=== PATIENT | female | born 1955 | race Caucasian/White ===

== ENCOUNTER 2017-06-03 20:30 | Inpatient (IN) | payer SELFPAY ==
[2017-06-03 21:06] LABS: Absolute Lymphocytes (CBC) 2.5 K/uL (0.7-4.9); Absolute Monocytes 0.8 K/uL (0.1-1.3); Absolute Neutrophil 4.4 K/uL (1.8-8.0); Basophils % 1.1 % (0-1.3); Eosinophils % 3.2 % (0-4.4); Hematocrit 44.2 % (36.0-45.0); Lymphocytes % 30.8 % (15.3-44.8); MCH 29.1 pg (27.0-35.0); MCV 87.2 fL (80-100); MPV 9.1 fL (7.6-11.3); Monocytes % 10.3 % (3.3-12.3); RBC Red Blood Cell Count 5.07 M/uL (3.86-4.86)
[2017-06-03 21:29] LABS: Bicarbonate 32 mEq/L (21-31); Glucose Level 103 mg/dL (65-120); Potassium 3.7 mEq/L (3.6-5.0); Sodium Level 138 mEq/L (135-145)
[2017-06-03 21:30] LABS: BUN Blood Urea Nitrogen 11 mg/dL (6-20); Glomerular Filtration Rate > 90 mL/min (=/>90)
--- NOTE | 2017-06-03 21:51 | RAD REPORT ---
EXAM DESCRIPTION: CT - Head Brain Wo Cont - 06/03/2017 9:32 pm CLINICAL HISTORY: Dizziness and blurred vision since this morning COMPARISON: None. TECHNIQUE: Computed axial tomography of the head was obtained. IV contrast was not requested. All CT scans are performed using dose optimization technique as appropriate and may include automated exposure control or mA/KV adjustment according to patient size. FINDINGS: An intracranial bleed is not seen . The ventricles are normal in caliber. No extra-axial fluid collection is noted. Fluid within the sinuses/ mastoids is not seen. IMPRESSION: No acute intracranial abnormality is seen. If patient's symptoms persist MRI of the bra in would be recommended.
--- NOTE | 2017-06-03 22:05 | EDPHYS ---
Physician Documentation [facility] Name: Lida Long Age: 62 yrs Sex: Female : 1955 Arrival Date: 06/03/2017 Time: 20:31 Bed 6 Private MD: ED Physician Rohith Chowdary HPI: 06/03 22:04 This 62 yrs old Female presents to ER via Ambulatory with complaints of snw Blurred Vision, Dizziness. 22:04 The patient's problem is reported as headache. Onset: The symptoms/episode snw began/occurred acutely, this morning. Duration: The episodes are intermittent. Context: the episode(s) was witnessed, by no one, occurred at home. The symptoms are alleviated by nothing. Associated signs and symptoms: Pertinent positives: dizziness, headache, headache. Severity of symptoms: At their worst the symptoms were moderate in the emergency department the symptoms are unchanged. Patient's baseline: Neuro: alert and fully oriented, Motor: no deficits, Ambulation: walks without assistance. The patient has not experienced similar symptoms in the past. Historical: - Allergies: 20:42 No Known Allergies; la1 - Home Meds: 21:51 gabapentin 300 mg oral cap 1 cap 3 times per day [Active]; nabumetone 750 mg oral tab 1 la1 tab 2 times per day [Active]; amitriptyline 10 mg Oral tab 1 tab nightly [Active]; atorvastatin 20 mg oral tab 1 tab once daily [Active]; levothyroxine 125 mcg tab 1 tab once daily [Active]; hydrochlorothiazide 12.5 mg Oral tab 1 tab once daily [Active]; citalopram 20 mg tab 1 tab once daily [Active]; amlodipine 2.5 mg tab 1 tab once daily [Active]; omeprazole 20 mg Oral cpDR 1 cap once daily [Active]; - PMHx: 20:42 Hypertension; Hypothyroidism; back pain; la1 - Immunization history:: Adult Immunizations up to date. - Social history:: Smoking status: Patient uses tobacco products, smokes one pack cigarettes per day. ROS: 22:00 Eyes: Negative for injury, pain, redness, and discharge, ENT: Negative for injury, snw pain, and discharge, Neck: Negative for injury, pain, and swelling, Cardiovascular: Negative for chest pain, palpitations, and edema, Respiratory: Negative for shortness of breath, cough, wheezing, and pleuritic chest pain, Abdomen/GI: Negative for abdominal pain, nausea, vomiting, diarrhea, and constipation. 22:00 : Negative for injury, bleeding, discharge, and swelling, MS/Extremity: Negative for injury and deformity, Skin: Negative for injury, rash, and discoloration. 22:00 Constitutional: Positive for body aches, fatigue, malaise. 22:00 Back: Positive for pain at rest, hx of herniated disc. 22:00 Neuro: Positive for dizziness, headache. Exam: 21:55 Constitutional: This is a well developed, well nourished patient who is awake, alert, snw and in no acute distress. Head/Face: Normocephalic, atraumatic. Eyes: Pupils equal round and reactive to light, extra-ocular motions intact. Lids and lashes normal. Conjunctiva and sclera are non-icteric and not injected. Cornea within normal limits. Periorbital areas with no swelling, redness, or edema. ENT: Nares patent. No nasal discharge, no septal abnormalities noted. Tympanic membranes are normal and external auditory canals are clear. Oropharynx with no redness, swelling, or masses, exudates, or evidence of obstruction, uvula midline. Mucous membranes moist. Neck: Trachea midline, no thyromegaly or masses palpated, and no cervical lymphadenopathy. Supple, full range of motion without nuchal rigidity, or vertebral point tenderness. No Meningismus. Chest/axilla: Normal chest wall appearance and motion. Nontender with no deformity. No lesions are appreciated. Cardiovascular: Regular rate and rhythm with a normal S1 and S2. No gallops, murmurs, or rubs. Normal PMI, no JVD. No pulse deficits. Respiratory: Lungs have equal breath sounds bilaterally, clear to auscultation and percussion. No rales, rhonchi or wheezes noted. No increased work of breathing, no retractions or nasal flaring. Abdomen/GI: Soft, non-tender, with normal bowel sounds. No distension or tympany. No guarding or rebound. No evidence of tenderness throughout. Back: No spinal tenderness. No costovertebral tenderness. Full range of motion. Skin: Warm, dry with normal turgor. Normal color with no rashes, no lesions, and no evidence of cellulitis. MS/ Extremity: Pulses equal, no cyanosis. Neurovascular intact. Full, normal range of motion. Neuro: Awake and alert, GCS 15, oriented to person, place, time, and situation. Cranial nerves II-XII grossly intact. Motor strength 5/5 in all extremities. Sensory grossly intact. Cerebellar exam normal. Normal gait. Psych: Awake, alert, with orientation to person, place and time. Behavior, mood, and affect are within normal limits. 22:04 Radiologist reports: Negative CT head snw Vital Signs: 20:42 BP 145 / 77; Pulse 70; Resp 16; Temp 98.5(O); Pulse Ox 96% on R/A; Weight 113.4 kg; la1 Height 5 ft. 2 in. (157.48 cm); 21:51 BP 130 / 76; Pulse 63; Resp 16; Pulse Ox 100% on R/A; la1 06/04 00:18 BP 147 / 80; Pulse 79; Resp 18; Pulse Ox 99% on R/A; jb5 06/03 20:42 Body Mass Index 45.73 (113.40 kg, 157.48 cm) la1 MDM: 06/03 20:41 Patient medically screened. snw 21:54 Data reviewed: vital signs, nurses notes, lab test result(s), EKG, radiologic studies. snw Data interpreted: Pulse oximetry: on room air is 96 %. Interpretation: acceptable. Counseling: I had a detailed discussion with the patient and/or guardian regarding: the historical points, exam findings, and any diagnostic results supporting the discharge/admit diagnosis, the presence of at least one elevated blood pressure reading (>120/80) during this emergency department visit, lab results, radiology results, the need for further work-up and treatment in the hospital. Physician consultation: Tristan Talley MD was called at 21:55, was contacted at 21:55, regarding admission, to the ICU, patient's condition. 06/03 20:46 Order name: Urine Culture snw 06/03 20:46 Order name: Urine Microscopic Only snw 06/03 20:46 Order name: CBC with Diff; Complete Time: 21:08 snw 06/03 20:46 Order name: Chem 7; Complete Time: 21:33 sn 06/03 20:46 Order name: Troponin (emerg Dept Use Only); Complete Time: 21:42 snw 06/04 00:15 Order name: Urine Dipstick--Ancillary (enter results) em1 06/03 20:46 Order name: CT Head Brain wo Cont; Complete Time: 21:52 snw 06/03 20:46 Order name: US Carotid Artery Bilateral snw 06/03 21:44 Order name: Chest Pa And Lat (2 Views) XRAY snw 06/03 21:51 Order name: CT Aorta for Dissection snw 06/03 20:46 Order name: EKG; Complete Time: 20:47 snw 06/03 20:46 Order name: EKG - Nurse/Tech; Complete Time: 20:52 snw 06/03 20:46 Order name: Urine Dipstick-Ancillary (obtain specimen); Complete Time: 00:02 snw Administered Medications: 22:02 Drug: fentaNYL (PF) 50 mcg Route: IVP; Site: right antecubital; la1 23:33 Follow up: Response: No adverse reaction ak1 23:50 Drug: PlaVIX 300 mg Route: PO; ak1 06/04 00:01 Follow up: Response: No adverse reaction ak1 06/03 23:51 Drug: Lovenox 100 mg Route: Sub-Q; Site: abdomen; ak1 06/04 00:02 Follow up: Response: No adverse reaction ak1 06/03 23:51 Drug: Aspirin Chewable Tablet 324 mg Route: PO; ak1 06/04 00:01 Follow up: Response: No adverse reaction ak1 Disposition: 06/03/17 22:04 Hospitalization ordered by Tristan Talley for Inpatient Admission. Preliminary diagnosis are Malaise and fatigue, Non-ST elevation (NSTEMI) myocardial infarction. - Bed requested for Intensive Care Unit. - Status is Inpatient Admission. ak1 - Condition is Stable. - Problem is new. - Symptoms are unchanged. UTI on Admission? No Signatures: Dispatcher [employer] EDCaril Lan RN RN kl Therrien, Shelly, CLINIC ADMINISTRATOR-C CLINIC ADMINISTRATOR-Csnw Elian Reynaga RN RN la1 Nay Johnson RN RN ak1
--- NOTE | 2017-06-03 22:05 | ER ---
Nurse's Notes [facility] Name: Lida Long Age: 62 yrs Sex: Female : 1955 Arrival Date: 06/03/2017 Time: 20:31 Bed 6 Private MD: Diagnosis: Malaise and fatigue;Non-ST elevation (NSTEMI) myocardial infarction Presentation: 06/03 20:40 Presenting complaint: Patient states: I have been having blurred vision, dizziness and la1 a headache since I woke up this morning. I went to bed at 10pm last night and did not have blurry vision or a headache. Transition of care: patient was not received from another setting of care. Onset of symptoms was June 02, 2017. Care prior to arrival: None. 20:40 Method Of Arrival: Ambulatory la1 20:40 Acuity: DOMINGUEZ 3 la1 Historical: - Allergies: 20:42 No Known Allergies; la1 - Home Meds: 21:51 gabapentin 300 mg oral cap 1 cap 3 times per day [Active]; nabumetone 750 mg oral tab 1 la1 tab 2 times per day [Active]; amitriptyline 10 mg Oral tab 1 tab nightly [Active]; atorvastatin 20 mg oral tab 1 tab once daily [Active]; levothyroxine 125 mcg tab 1 tab once daily [Active]; hydrochlorothiazide 12.5 mg Oral tab 1 tab once daily [Active]; citalopram 20 mg tab 1 tab once daily [Active]; amlodipine 2.5 mg tab 1 tab once daily [Active]; omeprazole 20 mg Oral cpDR 1 cap once daily [Active]; - PMHx: 20:42 Hypertension; Hypothyroidism; back pain; la1 - Immunization history:: Adult Immunizations up to date. - Social history:: Smoking status: Patient uses tobacco products, smokes one pack cigarettes per day. Screenin:51 Abuse screen: Denies threats or abuse. Nutritional screening: No deficits noted. la1 Tuberculosis screening: No symptoms or risk factors identified. Fall Risk None identified. Assessment: 20:50 General: Appears in no apparent distress. Behavior is calm, cooperative. Pain: la1 Complains of pain in forehead and right base of the skull. Neuro: Level of Consciousness is awake, alert, obeys commands, Oriented to person, place, time, situation, Tie Tape Machine Operator are equal bilaterally Moves all extremities. Full function Gait is steady, Speech is normal, Facial symmetry appears normal, Pupils are PERRLA, Intact. Neuro: Reports dizziness, headache. Cardiovascular: Capillary refill < 3 seconds Patient's skin is warm and dry. Respiratory: Airway is patent Respiratory effort is even, unlabored, Respiratory pattern is regular, symmetrical. GI: No signs and/or symptoms were reported involving the gastrointestinal system. : No signs and/or symptoms were reported regarding the genitourinary system. 21:28 Reassessment: Patient appears in no apparent distress at this time. No changes from la1 previously documented assessment. Patient and/or family updated on plan of care and expected duration. Pain level reassessed. Vital Signs: 20:42 BP 145 / 77; Pulse 70; Resp 16; Temp 98.5(O); Pulse Ox 96% on R/A; Weight 113.4 kg; la1 Height 5 ft. 2 in. (157.48 cm); 21:51 BP 130 / 76; Pulse 63; Resp 16; Pulse Ox 100% on R/A; la1 04 00:18 BP 147 / 80; Pulse 79; Resp 18; Pulse Ox 99% on R/A; jb5 04 20:42 Body Mass Index 45.73 (113.40 kg, 157.48 cm) la1 ED Course: 06/03 20:31 Patient arrived in ED. ds1 20:40 Zaida Stokes F[facility]-C [facility]. snw 20:40 Rohith Chowdary MD is Attending Physician. snw 20:41 Triage completed. la1 20:42 Arm band placed on left wrist. la1 20:50 Elian Reynaga, LAINA is Primary Nurse. la1 20:52 Placed in gown. Bed in low position. Pulse ox on. NIBP on. la1 20:52 No provider procedures requiring assistance completed. Inserted saline lock: 20 gauge la1 in right antecubital area, using aseptic technique. Blood collected. 21:08 Ultrasound completed. Patient tolerated well. sg3 21:16 Radiology exam delayed due to UltraSound is being performed. jg1 21:32 CT completed. Patient moved to CT via stretcher. Patient moved back from CT. jg1 21:33 CT Head Brain wo Cont In Process Unspecified. EDMS 21:41 Notified Nurse Practitioner and/or Physician Environmental Services Tech of a critical lab result(s), fc trop 0.74. 22:00 US Carotid Artery Bilateral In Process Unspecified. EDMS 22:02 Tristan Talley MD is Hospitalizing Provider. snw 22:16 CT Aorta for Dissection In Process Unspecified. EDMS 22:16 CT completed. Patient tolerated procedure well. Patient moved to radiology. jg1 06/04 00:48 Patient admitted, IV remains in place. ak1 Administered Medications: 06/03 22:02 Drug: fentaNYL (PF) 50 mcg Route: IVP; Site: right antecubital; la1 23:33 Follow up: Response: No adverse reaction ak1 23:50 Drug: PlaVIX 300 mg Route: PO; ak1 06/04 00:01 Follow up: Response: No adverse reaction ak1 06/03 23:51 Drug: Lovenox 100 mg Route: Sub-Q; Site: abdomen; ak1 06/04 00:02 Follow up: Response: No adverse reaction ak1 06/03 23:51 Drug: Aspirin Chewable Tablet 324 mg Route: PO; ak1 06/04 00:01 Follow up: Response: No adverse reaction ak1 Outcome: 06/03 22:04 Decision to Hospitalize by Provider. snw 06/04 00:47 Admitted to ICU accompanied by nurse, family with patient, via wheelchair, room ICU 7, ak1 with chart, Report called to ANTOLIN MARINA Condition: stable Instructed on the need for admit. 01:01 Patient left the ED. ak1 Signatures: Dispatcher [employer] EDMS Zaida Stokes, PROJECT HIRE-C PROJECT HIRE-Csnw Yasmin Mcfarlane jg1 Rajwinder Paulson, RN RN Dianna Wagner ds1 Elian Reynaga RN RN la1 Nay Johnson RN RN ak1 Jennifer Emmanuel5 Linda Soliz 3
[2017-06-03] MEDS ORDERED: FENTANYL CITR 100 MCG/2 ML ONE (22:18)
[2017-06-04] MEDS ORDERED: ASPIRIN 81 MG CHEWABLE TABLET ONE
[2017-06-04] MEDS ORDERED: CLOPIDOGREL 75 MG TABLET ONE
[2017-06-04] MEDS ORDERED: ENOXAPARIN 100 MG/ML SYR SQ ONE (00:01)
[2017-06-04] MEDS ORDERED: ONDANSETRON 4 MG/2 ML VIAL IV PRN (00:50)
[2017-06-04 01:12] VITALS: BMI 48.7
[2017-06-04 05:11] LABS: Absolute Lymphocytes (CBC) 3.1 K/uL (0.7-4.9); Absolute Monocytes 0.9 K/uL (0.1-1.3); Absolute Neutrophil 3.3 K/uL (1.8-8.0); Basophils % 1.1 % (0-1.3); Hematocrit 42.6 % (36.0-45.0); Lymphocytes % 40.7 % (15.3-44.8); MCH 28.7 pg (27.0-35.0); MCV 88.8 fL (80-100); MPV 9.3 fL (7.6-11.3); Monocytes % 11.5 % (3.3-12.3)
--- NOTE | 2017-06-04 06:29 | EKG ---
Test Date: 2017-06-03 Test Time: 20:43:01 Concrete Batch Plant Operator: BOB MEASUREMENT RESULTS: Intervals: Rate: 66 VA: 168 QRSD: 88 QT: 406 QTc: 425 [place]: P: 20 VA: 168 QRS: 22 T: 10 INTERPRETIVE STATEMENTS: Normal sinus rhythm Normal ECG No previous ECG available for comparison Electronically Signed On 06-04-17 06:28:16 CDT by Noman Garrison
--- NOTE | 2017-06-04 07:54 | RAD REPORT ---
EXAM DESCRIPTION: CT - Angio Aorta For Dissection - 06/03/2017 10:15 pm CLINICAL HISTORY: . Chest pain/abdominal pain. Hypotension. COMPARISON: None TECHNIQUE: Computed tomography angiography of the chest, abdomen pelvis were obtained. 100 cc Isovue 370 was administered intravenously. Coronal and sagittal reconstruction were performed. A preliminar y report was generated by Clean Runner and reviewed prior to this dictation. All CT scans are performed using dose optimization technique as appropriate and may include automated exposure control or mA/KV adjustment according to patient size. FINDINGS: An aortic dissection is not seen. An aortic aneurysm is not displayed. The celiac, SMA and DANIEL are patent . A lung consolidation is not present. A pericardial effusion is not seen. A pleural effusion is not n oted. The visualized thyroid gland is enlarged. An 11 millimeter nodule is present within the left lo be. A small hiatal hernia is present. The liver,spleen, pancreas adrenals kidneys demonstrate no signific ant abnormality. Mild stranding is present within the central mesenteric fat The appendix is normal. There no evidence diverticulitis. No ascites is noted. A tiny umbilical herni a contains fat IMPRESSION: Negative for an aortic dissection. Thyromegaly with a small nodule Mild stranding within the mesenteric fat may indicate a mesenteritis
--- NOTE | 2017-06-04 07:55 | RAD REPORT ---
EXAM DESCRIPTION: Kenney Herbert (2 Views)06/03/2017 10:36 pm CLINICAL HISTORY: Cough COMPARISON: None FINDINGS: The lungs appear clear of acute infiltrate. The heart is mildly enlarged IMPRESSION: No acute abnormalities displayed
--- NOTE | 2017-06-04 08:07 | RAD REPORT ---
EXAM DESCRIPTION: VASCarotid Artery Bilateral06/03/2017 10:00 pm CLINICAL HISTORY: Blurred vision COMPARISON: None FINDINGS: The velocity of the right internal carotid artery equals 80 cm/sec. The right ICA/CCA rati o 1.2 The velocity of the left internal carotid artery equals 70 cm/sec. The left ICA/CCA ratio 0.9 Mild to moderate plaque is present within the carotid arteries. The vertebral arteries demonstrate antegrade flow IMPRESSION: Mild to moderate plaque within the carotid arteries without evidence of a hemodynamical ly significant stenosis
[2017-06-04] MEDS ORDERED: AMLODIPINE 2.5 MG TAB PO SCH (09:00)
[2017-06-04] MEDS ORDERED: CITALOPRAM 10 MG TABLET PO SCH (09:00)
[2017-06-04] MEDS ORDERED: hydroCHLOROthiazide 12.5 MG CAP PO SCH (09:00)
[2017-06-04] MEDS ORDERED: ASPIRIN EC 81 MG TAB PO SCH (09:00)
[2017-06-04] MEDS: GABAPENTIN 300 MG CAP PO SCH ×3 (10:36→19:56)
--- NOTE | 2017-06-04 12:28 | CON ---
Identification: A 62-year-old woman. Chief Complaint: Dizziness and chest pain. Reason For Cardiology Consult: Abnormal troponins. History Of Present Illness: Ms. Long is 62. She was in her usual state of health until the day o f admission very early in the morning, this morning. She came to the hospital with malaise, fatigue, blurred vision, dizziness, atypical chest pain, and fleeting pains that occur across her chest. Sin ce she has been in the hospital, she has had troponins that are elevated. She was not having chest p ain that sounded even remotely like coronary heart disease. She has had a CT dissection test that is within normal limits. She has had electrocardiogram that is normal. She has had a carotid ultrasou nd that shows mild plaque, no stenosis. A CAT scan of the head shows no intracranial abnormality and a chest x-ray is normal. The patient is a regular tobacco user. She has a history of hypertension, but no diabetes or dyslipidemia. Outpatient Medications: Gabapentin, nabumetone, amitriptyline, atorvastatin, levothyroxine, hydrochl orothiazide, Celexa, amlodipine and omeprazole. Allergies: SHE HAS NO ALLERGIES. Physical Examination: Vital Signs: 5 feet 2, 266 pounds. HEENT: Normal. Lungs: Clear. Heart: Within normal limits. Abdomen: Soft. Extremities: normal. So, we have a patient with atypical chest pain, abnormal troponins, atypical symptoms. I have recomm ended that, we do a cardiac cath, possibly a stent. I think, we need to know what the situation for her heart is and she seems to understand the procedure, its potential benefits and agrees to proceed. We will do a cardiac cath later today. DANNA Voice ID: [id number] Report ID: [id number]
--- NOTE | 2017-06-04 12:55 | EKG ---
Test Date: 2017-06-04 Test Time: 10:02:11 Surgical Dental Assistant: EMILIANO MEASUREMENT RESULTS: Intervals: Rate: 56 DE: 180 QRSD: 96 QT: 430 QTc: 414 [place]: P: 31 DE: 180 QRS: 44 T: 21 INTERPRETIVE STATEMENTS: Sinus bradycardia Otherwise normal ECG Compared to ECG 06/03/2017 20:43:01 Sinus rhythm no longer present Electronically Signed On 06-04-17 12:54:33 CDT by Noman Garrison
[2017-06-04] MEDS ORDERED: LIDOCAINE 1% 20 ML MDV ONE (14:26)
[2017-06-04] MEDS ORDERED: MIDAZOLAM HCL 2 MG/2 ML INJ ONE ×2 (14:56→15:20)
[2017-06-04] MEDS ORDERED: FENTANYL CITR 100 MCG/2 ML ONE (14:56)
[2017-06-04] MEDS ORDERED: ATROPINE SULF 1 MG/10 ML SYR IV ONE (14:57)
[2017-06-04] MEDS ORDERED: NA CHLORIDE 0.9% 0 ML ONE (14:57)
[2017-06-04] MEDS ORDERED: NA CHLORIDE 0.9% 500 ML ONE (15:06)
[2017-06-04 18:52] VITALS: TEMP 98.1
[2017-06-04] MEDS ORDERED: ATORVASTATIN 20 MG TAB PO SCH (21:00)
[2017-06-04] MEDS ORDERED: AMITRIPTYLINE 10 MG TAB PO SCH (21:00)
[2017-06-04 21:21] VITALS: BP 128/65
[2017-06-04 22:20] VITALS: O2SAT 96
--- NOTE | 2017-06-04 22:28 | HP ---
Date of Admission: 06/03/2017 History Of Present Illness: A 62-year-old female who presented to the emergency room with feeling of fatigue, dizzy and felt her vision is blurry for a short period of time that has resolved by the pily e she came to emergency room. She described headache, which also resolved yet on her workup in the e mergency room, she was found to have high rapid troponin, and subendocardial MO was her admission elizabeth gnosis. The patient denies any nausea or vomiting and voiced no other complaints. Review of Systems: Cardiovascular: The patient did not complain of chest pain. No increased shortness of breath. No p alpitation. No other complaint. Respiratory: No complaints. Skeletomuscular: Chronic low back pain, no change. Neurological: No complaint except for the headache that has resolved. Gastrointestinal: No complaint. Pulmonary: No complaint. No shortness of breath. Past Medical History: 1.Chronic low back pain. 2.Anxiety/depression. 3.Hypothyroidism. 4.Hypertension. 5.Gastroesophageal reflux disease. 6.Hyperlipidemia. Family History: Noncontributory. Social History: No smoking, alcohol, or other drug abuse history. Medications: Nabumetone 750 mg p.o. daily, amitriptyline 10 mg p.o. daily, amlodipine 2.5 mg p.o. da evans, atorvastatin 20 mg p.o. daily, Celexa 20 mg p.o. daily, gabapentin 300 mg p.o. t.i.d., levothyro xine 125 mcg p.o. daily, and omeprazole 20 mg p.o. daily. Allergies: NO KNOWN DRUG ALLERGIES. Physical Examination: Vital Signs: Blood pressure 130/80, pulse 60, and temperature 96.8. Heart: Regular rate and rhythm. Chest: Clear to auscultation. Abdomen: Soft, nontender. No hepatosplenomegaly. Bowel sounds normoactive. Extremities: No edema. No cyanosis. Peripheral pulses are felt. Neurological: Alert, oriented, nonfocal. Grossly intact. Chest x-ray and chest CT showed no acute pathology and no aortic dissection. Head CT, no acute patho logy. Carotid ultrasound Doppler, no significant stenosis. The patient had some plaquing. Laboratory Data: CBC nonrevealing. Chloride 100 and bicarb 36. The patient's rapid troponin 0.74, subsequent troponins 0.67 and 0.64. Diagnostic Data: EKG showed normal sinus rhythm. Assessment And Plan: Subendocardial myocardial infarction. The patient is being admitted. Cardiolo gy is consulted. Heart catheterization is planned by Cardiology for today. Meanwhile, the patient w ill continue her home medications and aspirin, and we will monitor her, look orders for details. MARTY/HENRY Voice ID: [id number]
[2017-06-04] MEDS ORDERED: POTASSIUM PHOS IN 0.9 % NACL 0 MMOL/0 ML BAG IV ONE (22:51)
--- NOTE | 2017-06-05 03:41 | OP ---
Surgeon: Noman Garrison MD Chief Complaint: Chest pain. Indication For Cardiac Cath: Abnormal troponins. Procedure Findings: The patient's coronary arteries are normal. Her ejection fraction is normal. L eft ventricular end-diastolic pressure is systolic, diastolic pressure is all normal. Procedure In Detail: The patient had abnormal troponins, atypical chest pain. She was brought to [facility] cardiac microbiology lab analyst in a fasting state, sedated with Versed and fentanyl, prepared and draped in the u sual sterile fashion. Right femoral approach was used. Lidocaine 1% was used to anesthetize the tis sues around the right femoral artery. An 18-gauge needle was used to enter the artery, modified Seld jin technique. A short J-wire 4-Vietnamese sheath, the sheath was flushed and we used it to perform [facility] the rest of the cardiac cath. A JL5 was used to engage the left main. A JL-4, JL-6 were both unsu ccessful. The 3DRC catheter was successful for the right coronary and LV gram was done using an angl ed pigtail. At the end of the procedure, catheters and wires were withdrawn. An angiogram was done through the sheath and the decision was made to close the arteriotomy using Angio-Seal. All of this was done without complications. Estimated Blood Loss: 10 cc. Freight Team Associate: Darcy Ruiz. JEB/HENRY Voice ID: [id number] Report ID: [id number]
[2017-06-05] MEDS ORDERED: PANTOPRAZOLE 40MG TABLET PO SCH (06:30)
[2017-06-05] MEDS ORDERED: LEVOTHYROXINE SOD 0.125 MG TAB PO SCH (06:30)
== END 2017-06-04 20:37 | disposition home or self-care (01) | DRG 282 ==
LOC: ER 20:30 → ERHOLD 22:32 → 3RD-ICU 06-04 00:22
PROVIDERS: ADMIT Internal Medicine; ATTEND Internal Medicine
PROC: 4A023N7 Measurement of Cardiac Sampling and Pressure, Left Heart, Percutaneous Approach (ICD-10-PCS; principal; 2017-06-04)
PROC: B201YZZ Plain Radiography of Multiple Coronary Arteries using Other Contrast (ICD-10-PCS; 2017-06-04)
PROC: B205YZZ Plain Radiography of Left Heart using Other Contrast (ICD-10-PCS; 2017-06-04)
DX: I21.4 Non-ST elevation (NSTEMI) myocardial infarction (principal); E03.9 Hypothyroidism, unspecified; E78.5 Hyperlipidemia, unspecified; I10 Essential (primary) hypertension; F41.8 Other specified anxiety disorders; K21.9 Gastro-esophageal reflux disease without esophagitis
CPT/HCPCS: 36415; 70450; 71046; 71275; 74175; 80048; 84484; 85025; 93005; 93458; 93880; 96372; 96374; 99285; C1760; C1893; J0583; J1650; J2250; J3010; Q9967

== ENCOUNTER 2022-08-01 09:54 | Inpatient (IN) | payer OTHER ==
--- OUTSIDE RECORDS SUMMARY | 2022-08-01 09:58 | XMS REPORT | Continuity of Care Document ---
:1955 Author Organization [facility] t Address [address] [place] [address] Care Team Providers Name Role Phone Norma Pittman Attending Clinician Unavailable ARGENTINA Attending Clinician Unavailable ARGENTINA Admitting Clinician Unavailable Problems This patient has no known problems. Allergies, Adverse Reactions, Alerts This patient has no known allergies or adverse reactions. Medications This patient has no known medications. Procedures This patient has no known procedures. Encounters Start End Encounter Admission Attending Care Care Encounter Source Date/Time Date/Time Type Type Clinicians Facility Department ID 2022-06-20 Outpatient DULCE MARIA Pittman CORY [id number] Common 15:19:01 Norma [id number] [facility] 2021-09-09 2021-09-09 Outpatient ASHLEY TANG [address] [place] 10:22:00 10:22:00 BEATRIZ 0715 [facility] Program Results This patient has no known results.
[2022-08-01] MEDS ORDERED: NA CHLORIDE 0.9% 1,000 ML ONE (11:11)
[2022-08-01] MEDS ORDERED: ACETAMINOPHEN 500 MG TAB ONE (11:11)
[2022-08-01] MEDS ORDERED: IPRATROPIUM BROM 0.5MG/2.5ML ONE ×2 (11:11→21:48)
[2022-08-01] MEDS ORDERED: CEFTRIAXONE 1000 MG/VIAL ONE (11:11)
[2022-08-01] MEDS ORDERED: ALBUTEROL 2.5 MG/3 ML NEB SOL ONE ×2 (11:11→21:48)
[2022-08-01] MEDS ORDERED: METHYLPREDNISOLONE 125 MG INJ ONE (11:11)
[2022-08-01] MEDS ORDERED: Levofloxacin 750mg IV 750 MG/150 ML BAG IV ONE (11:12)
[2022-08-01] MEDS ORDERED: FAMOTIDINE 20 MG/2 ML VIAL IV ONE (11:12)
--- NOTE | 2022-08-01 11:41 | RAD REPORT ---
EXAM DESCRIPTION: [place] Single View08/01/2022 11:21 am CLINICAL HISTORY: COUGH COMPARISON: Chest Pa And Lat (2 Views) dated 06/03/2017 TECHNIQUE: Portable AP view of the chest. FINDINGS: Decreased inspiratory effort limiting evaluation. The lungs show no focal opacities. Centr al interstitial prominence and crowding of the central vascular markings. Bibasilar atelectatic anaya es. No pneumothorax or effusion. The cardiomediastinal contours are unremarkable. IMPRESSION: Central interstitial prominence could reflect mild congestion/CHF.
[2022-08-01] MEDS ORDERED: ONDANSETRON 4 MG/2 ML VIAL ONE (11:56)
[2022-08-01 12:10] LABS: Absolute Lymphocytes (CBC) 0.9 K/uL (0.7-4.9); Hematocrit 41.8 % (36.0-45.0); Lymphocytes % 5.6 % (15.3-44.8); MCV 86.6 fL (80-100); MPV 10.2 fL (7.6-11.3); RBC Red Blood Cell Count 4.82 M/uL (3.86-4.86)
[2022-08-01 12:13] LABS: Protime INR 1.13
--- NOTE | 2022-08-01 12:16 | ER ---
Nurse's Notes [facility] Name: Lida Long Age: 67 yrs Sex: Female : 1955 Arrival Date: 08/01/2022 Time: 09:54 Bed 28 Private MD: CLYDE OSBORN Diagnosis: Fever, unspecified;Morbid (severe) obesity due to excess calories;COPD/ Chronic obstructive pulmonary disease with (acute) exacerbation;Abdominal tenderness;Dysuria;Elevated white blood cell count;Acute cystitis Presentation: 08/01 10:15 Initial Sepsis Screen: Does the patient meet any 2 criteria? RR > 20 per min. Does the aa5 patient have a suspected source of infection? Yes:. Onset of symptoms was July 2022. 10:15 Acuity: DOMINGUEZ 3 aa5 10:15 Risk Assessment: Do you want to hurt yourself or someone else? Patient reports no aa5 desire to harm self or others. 10:15 Coronavirus screen: shortness of breath. Ebola Screen: Patient denies travel to an [facility]-affected area in the 21 days before illness onset. 10:15 Method Of Arrival: Wheelchair aa5 10:15 Chief complaint: Patient states: "It started with yellow/brown discharge down there, aa5 I'm not sure exactly where is coming from". Pt also reports abd cramping, black stool, vomiting, not eating since Sunday. Pt also reports SOB. Triage Assessment: 10:15 General: Appears distressed, uncomfortable, obese, Behavior is cooperative, appropriate bp for age, anxious. Pain: Complains of pain in abdomen. EENT: No deficits noted. Neuro: No deficits noted. Cardiovascular: Rhythm is sinus rhythm. Respiratory: Reports shortness of breath Onset: The symptoms/episode began/occurred today, the patient has mild shortness of breath. GI: Abdomen is obese. : No signs and/or symptoms were reported regarding the genitourinary system. Derm: No deficits noted. Musculoskeletal: No deficits noted. Historical: - Allergies: 10:19 No Known Allergies; aa5 - PMHx: 10:19 Back pain; Hypertension; Hypothyroidism; Hypercholesterolemia; aa5 - PSHx: 10:19 None; aa5 - Immunization history:: Adult Immunizations unknown. - Social history:: Smoking status: Patient reports the use of cigarette tobacco products, smokes one pack cigarettes per day. Screenin:00 [facility] ED Fall Risk Assessment (Adult) History of falling in the last 3 months, bp including since admission No falls in past 3 months (0 pts). Abuse screen: Denies threats or abuse. Denies injuries from another. Nutritional screening: No deficits noted. Tuberculosis screening: No symptoms or risk factors identified. Assessment: 10:15 General: SEE TRIAGE NOTE. bp 12:00 Reassessment: No changes from previously documented assessment. Patient is alert, bp oriented x 3, equal unlabored respirations, skin warm/dry/pink. 14:00 Cardiovascular: Rhythm is sinus rhythm. Respiratory: Airway is patent Respiratory bp effort is labored, Breath sounds with crackles bilaterally. 16:00 Reassessment: Patient is alert, oriented x 3, equal unlabored respirations, skin bp warm/dry/pink. Patient states feeling better. 18:00 Reassessment: ADMIT IN PROCESS. bp Vital Signs: 10:15 BP 152 / 74; Pulse 81; Resp 24 S; Temp 100.8(O); Pulse Ox 91% on R/A; Weight 122.47 kg aa5 (R); Height 5 ft. 6 in. (R); 12:00 BP 120 / 70; Pulse 72; Resp 20; Pulse Ox 98% ; bp 14:00 BP 97 / 66; Pulse 80; Resp 15; Pulse Ox 94% ; bp 16:00 BP 141 / 69; Pulse 75; Resp 20; Pulse Ox 94% ; bp 18:00 BP 101 / 67; Pulse 73; Resp 19; Pulse Ox 95% ; bp 10:15 Body Mass Index 43.58 (122.47 kg, 167.64 cm) aa5 ED Course: 09:56 Patient arrived in ED. am2 09:56 CLYDE OSBORN is Private Physician. am2 09:57 August Gómez MD is Attending Physician. ben 10:18 Arm band placed on Patient placed in an exam room, on a stretcher. aa5 10:19 Paddy Carbajal, LAINA is Primary Nurse. bp 10:19 Triage completed. aa5 11:23 XRAY Chest (1 view) In Process Unspecified. EDMS 11:55 Inserted saline lock: 20 gauge in right forearm, using aseptic technique. Blood bp collected. 12:00 Patient has correct armband on for positive identification. Bed in low position. Call bp light in reach. Side rails up X2. Adult w/ patient. 12:14 Luis Hardin MD is Hospitalizing Provider. ben 12:59 CT Chest, Abdomen, Pelvis - W/Contrast In Process Unspecified. EDMS Administered Medications: 11:55 Drug: NS 0.9% IV 1000 ml Route: IV; Rate: 1 bolus; Site: right forearm; bp 11:55 Drug: Acetaminophen PO 1000 mg Route: PO; bp 11:55 Drug: MethylPrednisoLONE IVP 125 mg Route: IVP; Site: right forearm; bp 11:55 Drug: Albuterol Inhalation 7.5 mg Route: Inhalation; bp 11:55 Drug: Ipratropium Inhalation Aerosol 0.5 mg Route: Inhalation; bp 11:55 Drug: Famotidine IVP 20 mg Route: IVP; Site: right forearm; bp 11:55 Drug: Ondansetron IVP 4 mg Route: IVP; Site: right forearm; bp 12:29 Drug: Rocephin IV 1 grams Route: IV; Rate: per protocol; Site: right forearm; bp 12:29 Drug: levofloxacin IVPB 750 mg Volume: 150 ml; Route: IVPB; Infused Over: 90 mins; bp Site: right forearm; Outcome: 12:15 Decision to Hospitalize by Provider. ben 20:38 Patient left the ED. kl Signatures: Dispatcher [employer] EDMS Carli Andres RN RN kl Anderson, Corey, MD MD cha Calderon, Audri RN RN Chikis Carlos Brian RN RN bp
--- NOTE | 2022-08-01 12:16 | EDPHYS ---
Physician Documentation [facility] Name: Lida Long Age: 67 yrs Sex: Female : 1955 Arrival Date: 08/01/2022 Time: 09:54 Bed 28 Private MD: CLYDE OSBORN ED Physician August Gómez HPI: 08/01 11:32 This 67 yrs old Female presents to ER via Wheelchair with complaints of ben Shortness Of Breath, Dizziness, Abdominal Cramping, Urinary Retention. 11:32 The patient has shortness of breath at rest, with light activity. Onset: The ben symptoms/episode began/occurred 2 day(s) ago. Duration: The symptoms are continuous, and are steadily getting worse. Associated signs and symptoms: Pertinent positives: productive cough. Severity of symptoms: At their worst the symptoms were moderate in the emergency department the symptoms are unchanged. The patient has experienced similar episodes in the past, multiple times. Historical: - Allergies: 10:19 No Known Allergies; aa5 - PMHx: 10:19 Back pain; Hypertension; Hypothyroidism; Hypercholesterolemia; aa5 - PSHx: 10:19 None; aa5 - Immunization history:: Adult Immunizations unknown. - Social history:: Smoking status: Patient reports the use of cigarette tobacco products, smokes one pack cigarettes per day. ROS: 11:38 Constitutional: Negative for fever, chills, and weight loss, Eyes: Negative for injury, ben pain, redness, and discharge, ENT: Negative for injury, pain, and discharge, Neck: Negative for injury, pain, and swelling, Cardiovascular: Negative for chest pain, palpitations, and edema, Back: Negative for injury and pain, : Negative for injury, bleeding, discharge, and swelling, MS/Extremity: Negative for injury and deformity, Skin: Negative for injury, rash, and discoloration, Neuro: Negative for headache, weakness, numbness, tingling, and seizure, Psych: Negative for depression, anxiety, suicide ideation, homicidal ideation, and hallucinations, Allergy/Immunology: Negative for hives, rash, and allergies, Endocrine: Negative for neck swelling, polydipsia, polyuria, polyphagia, and marked weight changes. 11:38 Respiratory: Positive for cough, shortness of breath, wheezing, expiratory. 11:38 Abdomen/GI: Positive for abdominal pain, nausea, vomiting, abdominal cramps, of the left upper quadrant, right lower quadrant and left lower quadrant. Exam: 11:38 Head/Face: Normocephalic, atraumatic. Eyes: Pupils equal round and reactive to light, ben extra-ocular motions intact. Lids and lashes normal. Conjunctiva and sclera are non-icteric and not injected. Cornea within normal limits. Periorbital areas with no swelling, redness, or edema. ENT: Nares patent. No nasal discharge, no septal abnormalities noted. Tympanic membranes are normal and external auditory canals are clear. Oropharynx with no redness, swelling, or masses, exudates, or evidence of obstruction, uvula midline. Mucous membranes moist. Neck: Trachea midline, no thyromegaly or masses palpated, and no cervical lymphadenopathy. Supple, full range of motion without nuchal rigidity, or vertebral point tenderness. No Meningismus. Chest/axilla: Normal chest wall appearance and motion. Nontender with no deformity. No lesions are appreciated. Cardiovascular: Regular rate and rhythm with a normal S1 and S2. No gallops, murmurs, or rubs. Normal PMI, no JVD. No pulse deficits. Back: No spinal tenderness. No costovertebral tenderness. Full range of motion. Female : Normal external genitalia. Skin: Warm, dry with normal turgor. Normal color with no rashes, no lesions, and no evidence of cellulitis. MS/ Extremity: Pulses equal, no cyanosis. Neurovascular intact. Full, normal range of motion. Neuro: Awake and alert, GCS 15, oriented to person, place, time, and situation. Cranial nerves II-XII grossly intact. Motor strength 5/5 in all extremities. Sensory grossly intact. Cerebellar exam normal. Normal gait. Psych: Awake, alert, with orientation to person, place and time. Behavior, mood, and affect are within normal limits. 11:38 Constitutional: The patient appears febrile. 11:38 Respiratory: mild respiratory distress is noted, Respirations: labored breathing, that is mild, Breath sounds: bronchial sounds, that are moderate, are scattered, decreased breath sounds, that are moderate, are scattered, rhonchi, that are mild, are scattered, stridor, is not appreciated, + upper airway congestion. wheezing: expiratory Respiratory rate: 24 11:38 Abdomen/GI: Inspection: distension, that is moderate, Bowel sounds: active, Palpation: moderate abdominal tenderness, in the left upper quadrant, right lower quadrant and left lower quadrant, Liver: no appreciated palpable abnormalities, Hernia: not appreciated. 12:20 ECG was reviewed by the Attending Physician. [facility] Vital Signs: 10:15 BP 152 / 74; Pulse 81; Resp 24 S; Temp 100.8(O); Pulse Ox 91% on R/A; Weight 122.47 kg aa5 (R); Height 5 ft. 6 in. (R); 12:00 BP 120 / 70; Pulse 72; Resp 20; Pulse Ox 98% ; bp 14:00 BP 97 / 66; Pulse 80; Resp 15; Pulse Ox 94% ; bp 16:00 BP 141 / 69; Pulse 75; Resp 20; Pulse Ox 94% ; bp 18:00 BP 101 / 67; Pulse 73; Resp 19; Pulse Ox 95% ; bp 10:15 Body Mass Index 43.58 (122.47 kg, 167.64 cm) aa5 MDM: 09:57 Patient medically screened. [facility] 11:39 Differential diagnosis: Bronchitis CHF exacerbation, Chronic Obstructive Pulmonary ben Disease pneumonia, pulmonary edema, reactive airway disease, Sepsis bowel obstruction, cholecystitis, Cholelithiasis, diverticulitis, gastritis, Mesenteric ischemia or infarction, non-specific abd pain, pancreatitis, Peptic Ulcer Disease, Pyelonephritis, Ureterolithiasis, urinary tract infection. Antibiotic administration: Levaquin given. Immunization status: Pneumococcal vaccine: within last 5 years. Influenza vaccine: within last 5 years. Data reviewed: vital signs, nurses notes, lab test result(s), EKG, radiologic studies, CT scan. Consideration of Admission/Observation Escalation of care including admission/observation considered. I considered the following discharge prescriptions or medication management in the emergency department Medications were administered in the Emergency Department. See MAR. Test considered but Not performed: MRI: no mrcp. Care significantly affected by the following chronic conditions: Hypertension, Obesity, high chlesterol, back pain, hypo thyroid. 08/01 10:27 Order name: Basic Metabolic Panel; Complete Time: 12:46 [facility] 08/01 10:27 Order name: CBC with Diff; Complete Time: 12:46 [facility] 08/01 10:27 Order name: LFT's; Complete Time: 12:46 [facility] 08/01 10:27 Order name: Magnesium; Complete Time: 12:46 [facility] 08/01 10:27 Order name: NT PRO-BNP; Complete Time: 12:46 [facility] 08/01 10:27 Order name: PT-INR; Complete Time: 12:28 [facility] 08/01 10:27 Order name: Troponin HS; Complete Time: 12:46 [facility] 08/01 10:27 Order name: Lipase; Complete Time: 12:46 [facility] 08/01 10:27 Order name: Blood Culture Adult (2) [facility] 08/01 10:27 Order name: Urinalysis w/ reflexes; Complete Time: 14:24 [facility] 08/01 10:27 Order name: Lactate w/ 2H reflex if indic.; Complete Time: 12:28 [facility] 08/01 10:27 Order name: SARS RAPID; Complete Time: 12:28 [facility] 08/01 10:27 Order name: Flu; Complete Time: 12:46 [facility] 08/01 12:38 Order name: Manual Differential; Complete Time: 12:46 EDMD 08/01 15:22 Order name: Magnesium EDMS 08/01 15:22 Order name: Phosphorus EDMS 08/01 15:22 Order name: T4 Free EDMS 08/01 15:22 Order name: Thyroid Stimulating Hormone EDMS 08/01 15:22 Order name: Urinalysis w/ reflexes EDMS 08/01 15:22 Order name: Basic Metabolic Panel EDMS 08/01 15:22 Order name: Basic Metabolic Panel EDMS 08/01 15:22 Order name: Comprehensive Metabolic Panel EDMS 08/01 15:22 Order name: Comprehensive Metabolic Panel EDMS 08/01 10:27 Order name: XRAY Chest (1 view); Complete Time: 12:13 [facility] 08/01 10:27 Order name: CT Chest, Abdomen, Pelvis - W/Contrast; Complete Time: 13:29 [facility] 08/01 10:27 Order name: EKG; Complete Time: 10:28 [facility] 08/01 15:22 Order name: Clear Liquid EDMD 08/01 10:27 Order name: Cardiac monitoring; Complete Time: 10:54 [facility] 08/01 10:27 Order name: EKG - Nurse/Tech; Complete Time: 12:29 [facility] 08/01 10:27 Order name: IV Saline Lock; Complete Time: 12:01 [facility] 08/01 10:27 Order name: Labs collected and sent; Complete Time: 12:01 [facility] 08/01 10:27 Order name: O2 Per Protocol; Complete Time: 10:54 [facility] 08/01 10:27 Order name: O2 Sat Monitoring; Complete Time: 10:54 [facility] 08/01 13:39 Order name: Misc. Order: get ua please; Complete Time: 13:40 [facility] EC:20 Rate is 68 beats/min. Rhythm is regular. QRS [place] is Normal. CA interval is normal. QRS ben interval is normal. QT interval is normal. No Q waves. T waves are Normal. No ST changes noted. Clinical impression: NSR w/ Non-specific ST/T Changes and No evidence of ischemia. Interpreted by me. Reviewed by me. Administered Medications: 11:55 Drug: NS 0.9% IV 1000 ml Route: IV; Rate: 1 bolus; Site: right forearm; bp 11:55 Drug: Acetaminophen PO 1000 mg Route: PO; bp 11:55 Drug: MethylPrednisoLONE IVP 125 mg Route: IVP; Site: right forearm; bp 11:55 Drug: Albuterol Inhalation 7.5 mg Route: Inhalation; bp 11:55 Drug: Ipratropium Inhalation Aerosol 0.5 mg Route: Inhalation; bp 11:55 Drug: Famotidine IVP 20 mg Route: IVP; Site: right forearm; bp 11:55 Drug: Ondansetron IVP 4 mg Route: IVP; Site: right forearm; bp 12:29 Drug: Rocephin IV 1 grams Route: IV; Rate: per protocol; Site: right forearm; bp 12:29 Drug: levofloxacin IVPB 750 mg Volume: 150 ml; Route: IVPB; Infused Over: 90 mins; bp Site: right forearm; Disposition Summary: 08/01/22 12:15 Hospitalization Ordered Hospitalization Status: Inpatient Admission ben Provider: Luis Hardin cha Location: Telemetry/MedSurg (Inpatient) ben Condition: Fair ben Problem: new ben Symptoms: have improved ben Bed/Room Type: Standard [facility] Room Assignment: 426(08/01/22 19:35) Diagnosis - Fever, unspecified ben - Morbid (severe) obesity due to excess calories ben - COPD/ Chronic obstructive pulmonary disease with (acute) exacerbation ben - Abdominal tenderness ben - Dysuria ben - Elevated white blood cell count ben - Acute cystitis ben Forms: - Medication Reconciliation Form ben - SBAR form ben Signatures: Dispatcher [employer] EDMS Marcelo, Kena, RN RN mw Rico, August, MD MD ben Stahl, Kelsey, RN RN aa5 Paddy Carbajal RN RN bp Corrections: (The following items were deleted from the chart) 19:35 12:15 ebn otto
[2022-08-01 12:23] LABS: SARS-CoV-2 Antigen Rapid Res Negative (Negative)
[2022-08-01 12:35] LABS: Albumin 2.5 g/dL (3.4-5.0); Bilirubin Direct 0.6 mg/dL (0-0.2); Bilirubin Indirect, Calculated 0.5 mg/dL (0.2-0.8); Bilirubin Total 1.1 mg/dL (0.2-1.0); Potassium 3.5 mEq/L (3.5-5.1); Protein, Total 7.3 g/dL (6.4-8.2); Troponin High Sensitivity 46.4 pg/mL (<58.9)
[2022-08-01 12:38] LABS: Blood Morphology Comment NOT SEEN (NOT SEEN); Platelet Estimate ADEQ
--- NOTE | 2022-08-01 13:18 | RAD REPORT ---
EXAM DESCRIPTION: CT - Chest Abdomen Pelvis W Cont - 08/01/2022 12:58 pm CLINICAL HISTORY: Chest and abdomen pain. Abdominal distention;Chest pain;Congestion COMPARISON: Chest Single View dated 07/31/2022; Chest Single View dated 07/29/2022; Chest Single View da paresh 07/28/2022; Chest Single View dated 07/27/2022No comparisons TECHNIQUE: Approximately 100 mL nonionic IV contrast was administered to the patient. All CT scans are performed using dose optimization technique as appropriate and may include automated exposure control or mA/KV adjustment according to patient size. FINDINGS: The lungs are clear.No pleural or pericardial effusion.No intrathoracic adenopathy. Mild fluid throughout the esophagus. Small hiatal hernia. The liver, spleen, pancreas, adrenal glands and kidneys are within normal limits. There is enhancemen t of the ureters as well as urinary bladder wall suggesting urinary tract infection. No bowel obstruction, free air, free fluid or abscess. Nonvisualized appendix. No pathologic lymphad enopathy in the abdomen or pelvis. No worrisome osseous finding. IMPRESSION: The findings favor ascending urinary tract infection. No pyelonephritis seen.
[2022-08-01 14:07] LABS: Urine Bacteria 20-50 /HPF (<20); Urine Bilirubin NEGATIVE (Negative); Urine Blood 2+ (Negative); Urine Clarity Turbid (Clear); Urine Color Yellow (Yellow); Urine Glucose NEGATIVE (Negative); Urine Mucus 3+ /HPF (None Seen); Urine Protein 1+ (Negative); Urine RBC 21-50 /HPF (None Seen); Urine Urobilinogen 2+ (Normal); Urine pH 6.5 (5.0-7.0)
[2022-08-01 14:08] LABS: Specific Gravity > 1.030 (1.005-1.030)
[2022-08-01] MEDS ORDERED: ACETAMINOPHEN 325 MG TABLET PO PRN (15:16)
[2022-08-01] MEDS ORDERED: ONDANSETRON 4 MG/2 ML VIAL IV PRN (15:19)
--- NOTE | 2022-08-01 15:29 | P.HP ---
Certification for Inpatient Patient admitted to: Inpatient With expected LOS: >2 Midnights Patient will require the following post-hospital care: None Practitioner: I am a practitioner with admitting privileges, knowledge of patient current condition, hospital course, and medical plan of care. Services: Services provided to patient in accordance with Admission requirements found in Title 42 Section 412.3 of the Code of Federal Regulations Patient History Date of Service: 08/01/22 Reason for admission: SOB, Wheezing History of Present Illness: Patient is a 67-year-old female with a past medical history significant for hypothyroidism, hyperlipidemia, hypertension who presents with complaint of shortness of breath and wheezing onset 4 days ago. Patient also reports pain in the suprapubic area rated as 10/10 in severity and described as sharp in quality. Patient reported associated signs and symptoms of dizziness, diaphoresis, fever, chills, loss of appetite, dysuria, weakness, fatigue, nausea, vomiting and dark stools. Patient reported that she has not been able to keep any p.o. intake down. Patient denies any other signs or symptoms. Symptoms are aggravated or relieved by nothing. Patient decided to present to the hospital due to worsening symptoms. Allergies No Known Allergies Allergy (Unverified 06/03/17 22:52) Home Medications: Amitriptyline [Elavil] 10 mg PO BEDTIME 06/03/17 Amlodipine [Norvasc*] 1 tab PO DAILY 06/03/17 Atorvastatin Calcium 20 mg PO DAILY 06/03/17 Citalopram [Celexa*] 20 mg PO DAILY 06/03/17 Gabapentin [Gralise] 300 mg PO TID 06/03/17 Levothyroxine [Synthroid*] 1 tab PO DAILY 06/03/17 Nabumetone 750 mg PO DAILY 06/03/17 Omeprazole 1 cap PO DAILY 06/03/17 hydroCHLOROthiazide [Hydrochlorothiazide] 12.5 mg PO DAILY 06/03/17 - Past Medical/Surgical History Diabetic: No -: HYPERTENSION -: HYPOTHYROIDISM -: CHRONIC BACK PAIN Past Surgical History: Reviewed- Non-Contributory - Social History Smoking Status: Current every day smoker Counseled patient to stop smoking for: less than 10 minutes Smoking therapy provided: Yes Patient receptive to therapy: No Alcohol use: No CD- Drugs: No Caffeine use: Yes Place of Residence: Home Review of Systems General: Fever, Chills, Sweats, Weakness, Other (Loos of apetite ) Eyes: Unremarkable ENT: Unremarkable Respiratory: Shortness of Breath, Wheezing Cardiovascular: Unremarkable Gastrointestinal: Nausea, Vomiting, Abdominal Pain Genitourinary: Dysuria Musculoskeletal: Back Pain Integumentary: Unremarkable Neurological: Weakness Lymphatics: Unremarkable Physical Examination - Physical Exam General: Alert, Oriented x3, Cooperative, Mild distress HEENT: Atraumatic, PERRLA, Mucous membr. moist/pink, EOMI, Sclerae nonicteric Neck: Supple, 2+ carotid pulse no bruit, No LAD, Without JVD or thyroid abnormality Respiratory: Diminished Cardiovascular: No edema, Regular rate/rhythm, Normal S1 S2 Capillary refill: <2 Seconds Gastrointestinal: Normal bowel sounds, Distended, Tenderness Musculoskeletal: Tenderness Integumentary: No rashes, No breakdown, No significant lesion Neurological: Normal speech, Normal strength at 5/5 x4 extr, Normal tone, Normal affect Lymphatics: No axilla or inguinal lymphadenopathy - Studies Laboratory Data (last 24 hrs) 08/01/22 11:55: PT 12.4, INR 1.13 08/01/22 11:55: WBC 16.10 H, Hgb 13.5, Hct 41.8, Plt Count 198 08/01/22 11:55: Sodium 132 L, Potassium 3.5, BUN 25 H, Creatinine 1.23 H, Glucose 121 H, Magnesium 2.0, Total Bilirubin 1.1 H, AST 21, ALT 13, Alkaline Phosphatase 106, Lipase 11 L Microbiology Data (last 24 hrs): 08/01/22 11:55 Nasopharnyx Influenza Type A Antigen Screen - Final 08/01/22 11:55 Nasopharnyx Influenza Type B Antigen Screen - Final Assessment and Plan - Plan --Acute on chronic COPD exacerbation. Continue steroids, neb treatment with albuterol\Atrovent. Continue O2 therapy. --UTI POA. Continue antibiotics. Urine cultures pending. --Sepsis POA\Leukocytosis. Blood cultures pending. Continue antibiotics. --Gastrointestinal bleeding. Gastroenterology consulted. H&H stable. We will continue to monitor hemoglobin and transfuse if less than 7.0. --Hypertension. Poorly controlled. Continue home medications and hydralazine as needed. --Hypothyroidism. Continue Synthroid --GERD. Continue protonix. --Chronic back pain. We will manage pain with current pain medication regimen. --Hyperlipidemia. Continue statin. -- Class III obesity. Likely secondary to excess calories intake. Patient counseled on weight reduction, diet and excise therapy. --Nicotine dependence. Patient counseled on tobacco cessation. Refuses nicotine patch. --Nausea and vomiting. Antiemetics on board. Continue supportive care. --ANI. Likely prerenal secondary to poor p.o. intake. Continue IV hydration. We will continue to monitor renal function. -- DVT prophylaxis with SCDs. Discharge Plan: Home Plan to discharge in: Greater than 2 days - Advance Directives Does patient have a Living Will: No Does patient have a Durable POA for Healthcare: No - Code Status/Comfort Care Code Status Assessed: Yes Physician Review: Patient Assessed, Agree with Above Assessment and Plan Critical Care: No
[2022-08-01] MEDS ORDERED: SODIUM CHLORIDE 0.9% 10ML INJ IV PRN (16:56)
[2022-08-01] MEDS ORDERED: HYDRALAZINE HCL 20 MG/ML VIAL IV PRN (16:57)
[2022-08-01] MEDS ORDERED: METHYLPREDNISOLONE 40 MG INJ IV SCH (17:00)
[2022-08-01 19:25] LABS: Thyroid Stimulating Hormone 0.492 uIU/mL (0.358-3.740)
[2022-08-01] MEDS: ALBUTEROL 2.5 MG/3 ML NEB SOL NEB SCH (20:00)
[2022-08-01] MEDS: IPRATROPIUM BROM 0.5MG/2.5ML NEB SCH (20:00)
[2022-08-01 21:53] VITALS: BMI 43.2
[2022-08-01] MEDS: CEFEPIME 1 GM in NA CHLORIDE 0.9% 100 ML IV SCH (22:10)
[2022-08-01] MEDS: POTASS/SODIUM PHOSPHATE 1 PKT POWD.PACK PO SCH ×2 (22:11→23:43)
[2022-08-01] MEDS: PANTOPRAZOLE 40 MG INJ IVP SCH (22:11)
[2022-08-01] MEDS: NA CHLORIDE 0.9% 1,000 ML IV SCH (22:11)
[2022-08-02] MEDS: POTASS/SODIUM PHOSPHATE 1 PKT POWD.PACK PO SCH ×4 (00:54→12:04)
[2022-08-02] MEDS: ALBUTEROL 2.5 MG/3 ML NEB SOL NEB SCH ×4 (02:00→19:30)
[2022-08-02] MEDS: IPRATROPIUM BROM 0.5MG/2.5ML NEB SCH ×4 (02:00→19:30)
[2022-08-02] MEDS ORDERED: METHYLPREDNISOLONE 40 MG INJ IV SCH (07:00)
[2022-08-02 07:07] LABS: Albumin 2.3 g/dL (3.4-5.0); Bilirubin Total 0.4 mg/dL (0.2-1.0); Phosphorus 2.5 mg/dL (2.5-4.9); Potassium 3.7 mEq/L (3.5-5.1); Protein, Total 6.8 g/dL (6.4-8.2)
--- NOTE | 2022-08-02 07:30 | P.PN ---
Date of Service: 08/02/22 Subjective: Feeling better today breathing feels easier today; feels wheezing is gone abdominal pain has decreased no BM since sunday afebrile ROS: 10 point ROS as noted above, otherwise negative Physical Exam: GEN: Alert, oriented, NAD HEENT: Normal conjunctiva, sclera anicteric CV: Regular rate and rhythm, no edema Pulm: Nonlabored respirations on room air, minimal wheeze ABD: Soft, mild suprapubic tenderness Neuro: Normal speech, normal affect vitals reviewed Problem List: Sepsis secondary to UTI present on admission CT chest/abdomen (08/01): The findings favor ascending urinary tract infection. No pyelonephritis seen. Urine cultures not sent in ED; ordered (08/02) Blood cultures pending Continue cefepime improving ANI, prerenal improved with IVF advance diet, and wean off IVF as oral intake improves Acute on chronic COPD exacerbation denies history of COPD, but long smoking history CXR (08/01): mild congestion Continue nebs / inhaler dc steroids on room air Gastrointestinal bleeding concern H&H stable. We will continue to monitor hemoglobin and transfuse if less than 7.0. Recommended patient to f/u with specialist for outpatient scope Hypertension. Continue home medications and hydralazine as needed. Hypothyroidism. Continue Synthroid GERD. Continue protonix Chronic back pain. continue current pain medication regimen Hyperlipidemia. Continue statin Class III obesity. Likely secondary to excess calories intake. Patient counseled on weight reduction, diet and excise therapy. Nicotine dependence. Patient counseled on tobacco cessation. Refuses nicotine patch. Nausea and vomiting. continue antiemetics. Continue supportive care. Code: Full Dispo: Home, 1-2 days
[2022-08-02 08:12] LABS: Absolute Lymphocytes (CBC) 0.8 K/uL (0.7-4.9); Hematocrit 39.2 % (36.0-45.0); Lymphocytes % 6.2 % (15.3-44.8); MCV 86.9 fL (80-100); MPV 10.7 fL (7.6-11.3); RBC Red Blood Cell Count 4.51 M/uL (3.86-4.86)
[2022-08-02] MEDS: ASPIRIN 81 MG CHEWABLE TABLET PO SCH (08:53)
[2022-08-02] MEDS: PANTOPRAZOLE 40 MG INJ IVP SCH ×2 (08:54→20:43)
[2022-08-02] MEDS: NA CHLORIDE 0.9% 1,000 ML IV SCH ×2 (08:55→20:40)
[2022-08-02] MEDS: CEFEPIME 1 GM in NA CHLORIDE 0.9% 100 ML IV SCH (08:55)
[2022-08-02] MEDS ORDERED: POTASSIUM 25 MEQ EFFERV TAB PO ONE (09:00)
--- NOTE | 2022-08-02 14:34 | EKG ---
Test Date: 2022-08-01 Test Time: 12:15:54 [employer]: BP MEASUREMENT RESULTS: Intervals: Rate: 68 SD: 152 QRSD: 96 QT: 404 QTc: 429 [place]: P: 19 SD: 152 QRS: 27 T: 38 INTERPRETIVE STATEMENTS: Normal sinus rhythm Minimal voltage criteria for LVH, may be normal variant Borderline ECG Compared to ECG 06/04/2017 10:02:11 Left ventricular hypertrophy now present Sinus bradycardia no longer present Electronically Signed On 08-02-22 14:32:32 CDT by Lazaro Silveira
[2022-08-03] MEDS: IPRATROPIUM BROM 0.5MG/2.5ML NEB SCH ×4 (01:35→20:10)
[2022-08-03] MEDS: ALBUTEROL 2.5 MG/3 ML NEB SOL NEB SCH ×4 (01:35→20:10)
[2022-08-03] MEDS: NA CHLORIDE 0.9% 1,000 ML IV SCH (01:35)
[2022-08-03 06:56] LABS: Absolute Lymphocytes (CBC) 1.5 K/uL (0.7-4.9); Hematocrit 40.2 % (36.0-45.0); MCV 87.6 fL (80-100); MPV 10.4 fL (7.6-11.3); RBC Red Blood Cell Count 4.58 M/uL (3.86-4.86)
--- NOTE | 2022-08-03 07:33 | P.PN ---
Date of Service: 08/03/22 Subjective: feeling better today breathing continuing to improve no abdominal pain today 1 small watery BM yesterday; none today ROS: 10 point ROS as noted above, otherwise negative Physical Exam: GEN: Alert, oriented, NAD HEENT: Normal conjunctiva, sclera anicteric CV: Regular rate and rhythm, no edema Pulm: Nonlabored respirations on room air, minimal wheeze ABD: Soft, mild suprapubic tenderness Neuro: Normal speech, normal affect vitals reviewed Problem List: Sepsis secondary to UTI present on admission CT chest/abdomen (08/01): The findings favor ascending urinary tract infection. No pyelonephritis seen. Urine cultures not sent in ED; ordered (08/02) Blood cultures NGTD Cefepime(08/01-08/03) switched to Levaquin (08/03-) monitor through today, f/u cultures likely DC with PO levaquin improving, afebrile ANI, prerenal resolved advanced diet, dc IVF 08/03 Acute on chronic COPD exacerbation denies history of COPD, but long smoking history CXR (08/01): mild congestion Continue nebs / inhaler dc steroids on room air suspect copd component; denies formal diagnosis Gastrointestinal bleeding concern H&H stable. We will continue to monitor hemoglobin and transfuse if less than 7.0. Recommended patient to f/u with GI for outpatient scope Hypertension. Continue home medications and hydralazine as needed. Hypothyroidism. Continue Synthroid GERD. Continue protonix Chronic back pain. continue current pain medication regimen Hyperlipidemia. Continue statin Class III obesity. Likely secondary to excess calories intake. Patient counseled on weight reduction, diet and excise therapy. Nicotine dependence. Patient counseled on tobacco cessation. Refuses nicotine patch. Nausea and vomiting. continue antiemetics. Continue supportive care. Code: Full Dispo: Home, 1 day
[2022-08-03] MEDS: PANTOPRAZOLE 40 MG INJ IVP SCH ×2 (08:49→21:02)
[2022-08-03] MEDS: ASPIRIN 81 MG CHEWABLE TABLET PO SCH (08:49)
[2022-08-03] MEDS: Levofloxacin 750mg IV 750 MG/150 ML BAG IV SCH (08:49)
[2022-08-03 10:28] LABS: Potassium 3.1 mEq/L (3.5-5.1)
[2022-08-03] MEDS ORDERED: POTASSIUM CL SA 10 MEQ TAB PO ONE (15:08)
[2022-08-04] MEDS: IPRATROPIUM BROM 0.5MG/2.5ML NEB SCH ×2 (02:00→08:05)
[2022-08-04] MEDS: ALBUTEROL 2.5 MG/3 ML NEB SOL NEB SCH ×2 (02:00→08:05)
[2022-08-04 04:59] LABS: Absolute Lymphocytes (CBC) 1.6 K/uL (0.7-4.9); Hematocrit 35.4 % (36.0-45.0); MCV 87.3 fL (80-100); MPV 9.9 fL (7.6-11.3); RBC Red Blood Cell Count 4.05 M/uL (3.86-4.86)
[2022-08-04 05:09] LABS: Magnesium 1.9 mg/dL (1.6-2.4); Potassium 3.7 mEq/L (3.5-5.1)
--- NOTE | 2022-08-04 07:46 | P.DS ---
Admission Date: 08/01/22 Discharge Date: 08/04/22 Disposition: ROUTINE DISCHARGE Discharge Condition: GOOD Reason for Admission: SOB, Wheezing Brief History of Present Illness: 67 yo F, PMH: hypothyroidism, hyperlipidemia, hypertension Patient who presents with complaint of shortness of breath and wheezing onset 4 days ago. Patient also reports pain in the suprapubic area rated as 10/10 in severity and described as sharp in quality. Patient reported associated signs and symptoms of dizziness, diaphoresis, fever, chills, loss of appetite, dysuria, weakness, fatigue, nausea, vomiting and dark stools. Patient reported that she has not been able to keep any p.o. intake down. Patient denies any other signs or symptoms. Symptoms are aggravated or relieved by nothing. Patient decided to present to the hospital due to worsening symptoms. Hospital Course: Problem List: Sepsis secondary to UTI ANI, prerenal, resolved Acute on chronic COPD exacerbation Gastrointestinal bleeding concern Hypertension Hypothyroidism GERD Chronic back pain Hyperlipidemia Obesity Nicotine dependence Nausea and vomiting Patient presented with fever, chills, dysuria, nausea, and vomiting. While in the ED, it was noted that she also was short of breath and wheezing. xray of the chest showed "mild congestion/CHF". Blood cultures were without growth, however final results pending on discharge. Patient was initially treated with IV Cefepime (08/01-08/03) but was switched to IV Levaquin and continued to improve (08/03). Patient was also treated with steroids and nebulizer treatments, and felt some improvement in her breathing. She remained stable on room air for her hospitalization. On day of discharge, patients breathing improved, remained afebrile for 48 hours and was deemed stable enough to be discharged home with PO Levaquin. She has no formal diagnosis or COPD but does have a significant history of smoking. She is to follow up with a track superintendent outpatient for further management and testing for COPD. New Prescription: Levaquin - once a day for 7 days Prednisone - twice a day for 3 days Tessalon perles as needed Albuterol inhaler as needed Chance in prescription: Patients Blood pressure was noted to be in the low to low-normal range while holding her blood pressure medication. Advised her to hold off on her amlodipine. She is to check her blood pressure daily at home and restart her medicaiton once her systolic blood pressure is consistently greater than 140. Follow up: PCP 3-5 days Pulmonology within 2-4 weeks Physical Exam: GEN: Alert, oriented, NAD HEENT: Normal conjunctiva, sclera anicteric CV: Regular rate and rhythm, no edema Pulm: Nonlabored respirations on room air, minimal wheeze ABD: Soft, mild suprapubic tenderness Neuro: Normal speech, normal affect Vital Signs/Physical Exam: Temp Pulse Resp BP Pulse Ox 97.1 F 62 18 96/49 L 93 08/04/22 04:00 08/04/22 04:00 08/04/22 04:00 08/04/22 04:00 08/04/22 04:00 Laboratory Data at Discharge: WBC 7.40 thou/uL (4.3-10.9) 08/04/22 03:42 Hgb 11.5 g/dL (12.0-15.0) L D 08/04/22 03:42 Hct 35.4 % (36.0-45.0) L 08/04/22 03:42 Plt Count 217 thou/uL (152-406) 08/04/22 03:42 PT 12.4 SECONDS (9.5-12.5) 08/01/22 11:55 INR 1.13 08/01/22 11:55 Sodium 139 mEq/L (136-145) 08/04/22 03:42 Potassium 3.7 mEq/L (3.5-5.1) 08/04/22 03:42 BUN 21 mg/dL (7-18) H 08/04/22 03:42 Creatinine 0.96 mg/dL (0.55-1.02) 08/04/22 03:42 Glucose 100 mg/dL (74-106) 08/04/22 03:42 Phosphorus 3.4 mg/dL (2.5-4.9) 08/03/22 06:26 Magnesium 1.9 mg/dL (1.6-2.4) 08/04/22 03:42 Total Bilirubin 0.4 mg/dL (0.2-1.0) 08/02/22 06:24 AST 16 U/L (15-37) 08/02/22 06:24 ALT 13 U/L (13-56) 08/02/22 06:24 Alkaline Phosphatase 91 U/L (45-117) 08/02/22 06:24 Lipase 11 U/L (13-75) L 08/01/22 11:55 Home Medications: Amlodipine [Norvasc*] 5 mg PO DAILY 08/01/22 Atorvastatin Calcium [Lipitor*] 20 mg PO DAILY 08/01/22 Fluoxetine HCl [Prozac] 20 mg PO DAILY 08/01/22 Levothyroxine Sodium 125 mcg PO DAILY 08/01/22 Omeprazole 20 mg PO DAILY 08/01/22 Albuterol Inhaler [Ventolin Inhaler*] 1 puff IH Q6H PRN 30 Days #1 unit 08/04/22 Benzonatate [Tessalon Perle] 100 mg PO Q8H PRN #15 cap 08/04/22 levoFLOXacin [Levaquin] 750 mg PO DAILY 7 Days #7 tab 08/04/22 predniSONE [Prednisone] 20 mg PO BID 3 Days #6 tab 08/04/22 New Medications: levoFLOXacin [Levaquin] 750 mg PO DAILY 7 Days #7 tab predniSONE [Prednisone] 20 mg PO BID 3 Days #6 tab Benzonatate [Tessalon Perle] 100 mg PO Q8H PRN #15 cap PRN Reason: Cough Albuterol Inhaler [Ventolin Inhaler*] 1 puff IH Q6H PRN 30 Days #1 unit PRN Reason: Shortness Of Breath Physician Discharge Instructions: Patient presented with fever, chills, dysuria, nausea, and vomiting. While in the ED, it was noted that she also was short of breath and wheezing. xray of the chest showed "mild congestion/CHF". Blood cultures were without growth, however final results pending on discharge. Patient was initially treated with IV Cefepime (08/01-08/03) but was switched to IV Levaquin and continued to improve (08/03). Patient was also treated with steroids and nebulizer treatments, and felt some improvement in her breathing. She remained stable on room air for her hospitalization. On day of discharge, patients breathing improved, remained afebrile for 48 hours and was deemed stable enough to be discharged home with PO Levaquin. She has no formal diagnosis or COPD but does have a significant history of smoking. She is to follow up with a track superintendent outpatient for further management and testing for COPD. New Prescription: Levaquin - once a day for 7 days Prednisone - twice a day for 3 days Tessalon perles as needed Albuterol inhaler as needed Chance in prescription: Patients Blood pressure was noted to be in the low to low-normal range while holding her blood pressure medication. Advised her to hold off on her amlodipine. She is to check her blood pressure daily at home and restart her medicaiton once her systolic blood pressure is consistently greater than 140. Follow up: PCP 3-5 days Pulmonology within 2-4 weeks Followup: Norma Pittman MD [Primary Care Provider] - Time spent managing pt's care (in minutes): 45
[2022-08-04] MEDS: ASPIRIN 81 MG CHEWABLE TABLET PO SCH (08:13)
[2022-08-04] MEDS: PANTOPRAZOLE 40 MG INJ IVP SCH (08:16)
[2022-08-04] MEDS: Levofloxacin 750mg IV 750 MG/150 ML BAG IV SCH (08:16)
[2022-08-04 08:27] VITALS: BP 125/62; TEMP 97.3
[2022-08-04] MEDS ORDERED: POTASSIUM CL SA 10 MEQ TAB PO ONE (09:00)
[2022-08-04 10:10] VITALS: O2SAT 99
== END 2022-08-04 12:06 | disposition home or self-care (01) | DRG 872 ==
LOC: ER 09:54 → ERHOLD 15:15 → 4TH 21:40
PROVIDERS: ADMIT Hospitalist; ATTEND Hospitalist
DX: A41.9 Sepsis, unspecified organism (principal); J44.1 Chronic obstructive pulmonary disease with (acute) exacerbation; N30.00 Acute cystitis without hematuria; Z68.41 Body mass index [BMI] 40.0-44.9, adult; N17.9 Acute kidney failure, unspecified; K92.2 Gastrointestinal hemorrhage, unspecified; E66.01 Morbid (severe) obesity due to excess calories; I10 Essential (primary) hypertension; K21.9 Gastro-esophageal reflux disease without esophagitis; E03.9 Hypothyroidism, unspecified; G89.29 Other chronic pain; M54.9 Dorsalgia, unspecified; E78.00 Pure hypercholesterolemia, unspecified; F17.210 Nicotine dependence, cigarettes, uncomplicated; Z79.52 Long term (current) use of systemic steroids; Z79.890 Hormone replacement therapy; Z79.899 Other long term (current) drug therapy
CPT/HCPCS: 36415; 71045; 71260; 74177; 80048; 80053; 80076; 81001; 83605; 83690; 83735; 83880; 84100; 84132; 84439; 84443; 84484; 85025; 85610; 87040; 87804; 87811; 93005; 94760; 96374; 96375; 99285; C9113; J0692; J0696; J2405; J2920; J2930; J7030; J7613; J7644; Q9967